=== PATIENT | female | born 1990 ===

== ENCOUNTER 2016-06-07 16:54 | Inpatient (IN) | payer OTHER ==
[2016-06-07] MEDS ORDERED: LEVOFLOXACIN 500 MG (PREMIX) 500 MG/100 ML SOL IV ONE (17:08)
[2016-06-07] MEDS ORDERED: SODIUM CHLORIDE 0.9% 1000ML 1,000 ML IV SCH (17:15)
[2016-06-07] MEDS ORDERED: HYDROMORPHONE HCL 2 MG/ML 1 ML SOL ONE ×3 (17:33→22:06)
[2016-06-07] MEDS: HYDROMORPHONE HCL 1 MG/ML SYRINGE IV PRN ×3 (17:37→22:12)
[2016-06-07 18:19] LABS: CALCIUM 8.3 mg/dl (8.5-10.1); POTASSIUM 3.3 mMol/L (3.5-5.1)
[2016-06-07] MEDS: SODIUM CHLORIDE 0.9% 1000ML 1,000 ML IV SCH (18:37)
[2016-06-07] MEDS: POTASSIUM CHLORIDE 10 MEQ TER PO SCH ×2 (18:59→22:11)
[2016-06-07] MEDS: ACETAMINOPHEN 325 MG PO PRN (20:16)
[2016-06-07] MEDS: ENOXAPARIN 40 MG SOL SC SCH (22:11)
[2016-06-07] MEDS ORDERED: ONDANSETRON 4 MG ODT BU PRN (22:15)
[2016-06-07] MEDS ORDERED: ONDANSETRON HCL 4 MG/2 ML SOL IV PRN (22:15)
[2016-06-08] MEDS: SODIUM CHLORIDE 0.9% 1000ML 1,000 ML IV SCH ×4 (00:34→17:03)
[2016-06-08] MEDS ORDERED: HYDROMORPHONE HCL 2 MG/ML 1 ML SOL ONE ×2 (01:51→08:07)
[2016-06-08] MEDS: HYDROMORPHONE HCL 1 MG/ML SYRINGE IV PRN ×2 (01:54→08:13)
[2016-06-08] MEDS: ACETAMINOPHEN 325 MG PO PRN ×2 (01:55→12:07)
[2016-06-08] MEDS: ENOXAPARIN 40 MG SOL SC SCH (08:32)
[2016-06-08] MEDS: TOPIRAMATE 25 MG TAB PO SCH (08:35)
[2016-06-08] MEDS ORDERED: HYDROMORPHONE HCL 2 MG/ML 1 ML SOL IV PRN (08:36)
[2016-06-08 11:45] LABS: BASOPHILS % (AUTO) 1 % (0-3); EOSINOPHILS % (AUTO) 0 % (0-9); HEMATOCRIT 32 % (35-47); MEAN CORPUSCULAR HGB CONC 35.7 gm/dl (32.0-36.0); MEAN CORPUSCULAR VOLUME 89 fL (81-99); NEUTROPHILS % (AUTO) 77.5 % (37-80)
[2016-06-08] MEDS: LEVOFLOXACIN 500 MG TAB PO SCH (11:55)
[2016-06-08] MEDS: APAP/HYDROCODONE 325/5 TAB PO PRN ×2 (14:43→19:58)
[2016-06-08 15:37] VITALS: RESP 20
[2016-06-09] MEDS: APAP/HYDROCODONE 325/5 TAB PO PRN ×2 (01:47→07:36)
[2016-06-09] MEDS: SODIUM CHLORIDE 0.9% 1000ML 1,000 ML IV SCH ×2 (01:54→04:33)
[2016-06-09 07:40] VITALS: BP 128/86; PULSE 105; TEMP 97.5; O2SAT 100
[2016-06-09] MEDS: LEVOFLOXACIN 500 MG TAB PO SCH (09:06)
[2016-06-09] MEDS: ENOXAPARIN 40 MG SOL SC SCH (09:07)
[2016-06-09] MEDS: TOPIRAMATE 25 MG TAB PO SCH (09:07)
[2016-06-09] MEDS ORDERED: INFLUENZA VIRUS VACCINE 0.5 ML SUS IM ONE (09:34)
== END 2016-06-09 10:15 | disposition home or self-care (01) | DRG 463 ==
LOC: ACUTE CARE 16:54
PROVIDERS: ADMIT Family Medicine; ATTEND Family Medicine
DX: N10 Acute pyelonephritis (principal); R51 Headache
CPT/HCPCS: 36415; 74177; 80048; 84132; 85025; 87040; 90686; J1170; J1650; J1956; J2405; Q9967; G0008

== ENCOUNTER 2018-03-15 18:52 | Emergency (ER) | payer BC, OTHER ==
[2018-03-15 19:31] VITALS: RESP 20; TEMP 97
[2018-03-15] MEDS ORDERED: SODIUM CHLORIDE 0.9% 1000ML 1,000 ML IV ONE (19:41)
[2018-03-15] MEDS ORDERED: KETOROLAC TROMETHAMINE 30 MG/ML SOL IV ONE (19:41)
[2018-03-15] MEDS ORDERED: ONDANSETRON HCL 4 MG/2 ML SOL IV ONE (19:41)
[2018-03-15] MEDS ORDERED: ONDANSETRON HCL 4 MG/2 ML SOL ONE (20:08)
[2018-03-15] MEDS ORDERED: KETOROLAC TROMETHAMINE 30 MG/ML SOL ONE (20:08)
[2018-03-15] MEDS ORDERED: SODIUM CHLORIDE 0.9% FLUSH 10 ML SOL IV PRN (20:23)
[2018-03-15 21:55] VITALS: BP 130/86; PULSE 109; O2SAT 100
== END 2018-03-15 21:26 | disposition home or self-care (01) ==
LOC: ED 18:52
DX: R51 Headache (principal); G93.2 Benign intracranial hypertension; R40.2142 Coma scale, eyes open, spontaneous, at arrival to emergency department; R40.2362 Coma scale, best motor response, obeys commands, at arrival to emergency department; R40.2252 Coma scale, best verbal response, oriented, at arrival to emergency department
CPT/HCPCS: 70450; 96365; 96374; 96375; 99283; 99284; J1885; J2405

== ENCOUNTER 2018-07-07 16:50 | Emergency (ER) | payer OTHER ==
[2018-07-07 17:33] VITALS: BP 129/89; RESP 20; TEMP 98.6; O2SAT 98
[2018-07-07 17:51] VITALS: PULSE 98
== END 2018-07-07 17:49 | disposition home or self-care (01) ==
LOC: ED 16:50
DX: J06.9 Acute upper respiratory infection, unspecified (principal)
CPT/HCPCS: 99282